=== PATIENT | male | born 1975 | race Caucasian/White ===

== ENCOUNTER 2018-05-08 02:22 | Emergency (ER) | payer OTHER ==
[2018-05-08 02:44] LABS: APPEARANCE,URINE CLOUDY; BILIRUBIN,URINE NEGATIVE (NEGATIVE); COLOR,URINE YELLOW; GLUCOSE, URINE NEGATIVE (NEGATIVE); KETONES,URINE NEGATIVE (NEGATIVE); LEUKOCYTE ESTERASE,URINE LARGE (NEGATIVE); NITRITE,URINE NEGATIVE (NEGATIVE); PROTEIN,URINE NEGATIVE (NEGATIVE); URINE SPECIFIC GRAVITY 1.014; UROBILINOGEN,URINE NEGATIVE mg/dL (<2.0)
[2018-05-08] MEDS ORDERED: LIDOCAINE 2% URO-JET 5 ML KIT MM ONE (02:56)
--- NOTE | 2018-05-08 02:57 | ER Document Report ---
ED General - General Chief Complaint: Urinary Retention Stated Complaint: UNABLE TO URINATE Time Seen by Provider: 05/08/18 02:39 Notes: Patient is a pleasant 42-year-old male who is down visiting from [place]. He has no chronic medical problems. He has a history of one previous UTI. No fevers. No vomiting. He says in the last 24 hours he has been able to urinate except for very small amounts when he does be it ríos and hurts. No other complaints at this time. TRAVEL OUTSIDE OF THE [place] IN LAST 30 DAYS: No - Related Data Allergies/Adverse Reactions: No Known Drug Allergies Allergy (Verified 05/08/18 02:35) Past Medical History - Social History Smoking Status: Never Smoker Frequency of alcohol use: None Drug Abuse: None Family History: Reviewed & Not Pertinent Review of Systems - Review of Systems Notes: My Normal Review Basic REVIEW OF SYSTEMS: CONSTITUTIONAL : Denies fever, chills, or sweats. Denies recent illness. GASTROINTESTINAL: Suprapubic abdominal pain. Denies nausea, vomiting, or diarrhea. GENITOURINARY: Dysuria MUSCULOSKELETAL: Denies neck or back pain or joint pain or swelling. SKIN: Denies rash or skin lesions. NEUROLOGICAL: Denies altered mental status or loss of consciousness. Denies headache. Denies weakness or paralysis or loss of use of either side. Denies problems with gait or speech. Denies sensory or motor loss. ALL OTHER SYSTEMS REVIEWED AND NEGATIVE. Physical Exam - Vital signs Vitals: Temp Pulse Resp BP Pulse Ox 98.2 F 82 18 149/82 H 96 05/08/18 02:30 05/08/18 02:30 05/08/18 02:30 05/08/18 02:30 05/08/18 02:30 - Notes Notes: General Appearance: Well nourished, alert, cooperative, no acute distress, mild obvious discomfort. Well-appearing. Vitals: reviewed, See vital signs table. Head: no swelling or tenderness to the head Eyes: PERRL, EOMI, Conjuctiva clear Mouth: No decreasd moisture Lungs: No wheezing, No rales, No rhonci, No accessory muscle use, good air exchange bilaterally. Heart: Normal rate, Regular rythm, No murmur, no rub Abdomen: Normal BS, soft, No rigidity, some suprapubic abdominal tenderness, No guarding, no rebound, bedside ultrasound shows approximately 1 L of urine in the bladder. This ultrasound was performed medially after the patient tried to urinate. He says he was able to urinate some but not a lot. Extremities: good pulses in all extremities, no swelling or tenderness in the extremities, no edema. Skin: warm, dry, appropriate color, no rash Neuro: speech clear, oriented x 3, normal affect, responds appropriately to questions. Course - Re-evaluation Re-evalutation: 05/08/18 04:40 Nurses attempted 3 times to put a Bradley catheter in. I have attempted twice. We have used 16 Barbadian 14 Barbadian and 12 Barbadian coud catheter. No success. We do not have urology production assistant. Patient's chemistry panel is normal with normal creatinine; however, he is still got a very large amount of urinary retention and my fears that without resolution of this he will start to develop renal failure. Also has some associated infection and therefore this needs to be available to be cleared. I suspect that he may have prostatitis which is causing his prostate as well because of outflow obstruction. 05/08/18 05:[address] Zurita, urologist at [facility], is very kind and accepted the patient for transfer. Patient accepted as an ER to ER transfer. Patient will go by private vehicle. Patient's will be driving. Patient did receive a dose of 1000 mg of Rocephin prior to discharge. 05/08/18 07:45 Dictation of this chart was performed using voice recognition software; therefore, there may be some unintended grammatical errors. - Vital Signs Vital signs: Temp Pulse Resp BP Pulse Ox 98.6 F 86 16 132/76 H 96 05/08/18 05:16 05/08/18 05:16 05/08/18 05:16 05/08/18 05:16 05/08/18 05:16 - Laboratory Result Diagrams: 05/08/18 03:14 Laboratory results interpreted by me: 05/08/18 05/08/18 02:30 03:14 Glucose 132 H Urine Blood SMALL H Ur Leukocyte Esterase LARGE H Discharge - Discharge Clinical Impression: Urinary retention, Pyuria Condition: Good Disposition: [facility] Additional Instructions: Please go straight to [facility]. Do not eat or drink anything in case a procedure is required by the urologist. please bring the packet of paper work with you with the ER and they will be expecting you.
[2018-05-08 03:40] LABS: ANION GAP 13 (5-19); BLOOD UREA NITROGEN 20 mg/dL (7-20); CALCIUM 9.5 mg/dL (8.4-10.2); CARBON DIOXIDE 24 mmol/L (22-30); CHLORIDE 102 mmol/L (98-107); GLUCOSE 132 mg/dL (75-110); POTASSIUM 4.5 mmol/L (3.6-5.0); SODIUM 139.1 mmol/L (137-145)
[2018-05-08] MEDS ORDERED: HYDROMORPHONE HCL INJ/PF 2 MG/ML AMPULE IM ONE (03:50)
[2018-05-08] MEDS ORDERED: CEFTRIAXONE INJ 1000 MG VIAL IM ONE (04:36)
[2018-05-08] MEDS ORDERED: LIDOCAINE 1% INJ-PF (10 MG/ML) 30 ML SDV INFIL ONE (04:36)
[2018-05-08 05:41] VITALS: BP 132/76
== END 2018-05-08 05:30 | disposition short-term general hospital (02) ==
LOC: ER 02:22
DX: R33.9 Retention of urine, unspecified (principal); N39.0 Urinary tract infection, site not specified
CPT/HCPCS: 99283; 96372; 36415; 87086; 87088; 80048; 81001; C1758 ×2; J3490 ×2; J1170; J0696